=== PATIENT | female | born 2000 | race Caucasian/White ===

== ENCOUNTER 2018-11-13 12:48 | Emergency (ER) | payer MEDICAID ==
[~2018-11-13] VITALS: Ht 154.9 cm; Wt 60.0 kg
[2018-11-13 12:52] VITALS: BP 120/72
== END 2018-11-13 13:25 | disposition home or self-care (01) ==
LOC: ER 12:49
DX: S06.0X0A Concussion without loss of consciousness, initial encounter (principal); W22.8XXA Striking against or struck by other objects, initial encounter; Y93.89 Activity, other specified; Y92.89 Other specified places as the place of occurrence of the external cause; Y99.9 Unspecified external cause status
CPT/HCPCS: 99284

== ENCOUNTER 2019-10-23 10:13 | Emergency (ER) | payer MEDICAID, OTHER ==
[~2019-10-23] VITALS: Ht 152.4 cm; Wt 52.3 kg
[2019-10-23 10:55] LABS: BASOPHILS % (AUTO) 0.5 % (0-1); EOSINOPHILS % (AUTO) 0.5 % (0-6); HEMATOCRIT 41.5 % (35.0-45.0); HEMOGLOBIN 14.2 g/dl (12.0-16.0); LYMPHOCYTES # (AUTO) 1.6 X10'3 (1.1-4.8); LYMPHOCYTES % (AUTO) 28.3 % (21-51); MEAN CORPUSCULAR HEMOGLOBIN 31.9 PG (27.0-31.0); MEAN CORPUSCULAR HGB CONC 34.1 g/dL (33.0-36.5); MEAN CORPUSCULAR VOLUME 93.3 FL (78-98); MEAN PLATELET VOLUME 10.1 FL (7.4-10.4); MONOCYTES # (AUTO) 0.5 X10'3 (0-0.9); MONOCYTES % (AUTO) 9.6 % (2-12); NEUTROPHILS # (AUTO) 3.4 X10'3 (1.8-7.7); NEUTROPHILS % (AUTO) 61.1 % (42-75); PLATELET COUNT 178 X10'3 (140-440); RED BLOOD COUNT 4.45 X10'6 (4.20-5.60); RED CELL DISTRIBUTION WIDTH 13.1 % (11.5-14.5); WHITE BLOOD COUNT 5.6 X10'3 (4.5-11.0)
[2019-10-23 10:57] LABS: URINE HCG NEGATIVE (NEG)
[2019-10-23 10:58] LABS: CLARITY,URINE CLEAR (Clear); COLOR,URINE YELLOW (Yellow); GLUCOSE, URINE NEGATIVE (Neg); KETONES,URINE NEGATIVE (Neg); LEUKOCYTE ESTERASE ,URINE NEGATIVE (Neg); NITRITES, URINE NEGATIVE (Neg); OCCULT BLOOD,URINE NEGATIVE (Neg); PROTEIN,URINE NEGATIVE (Neg); UROBILINOGEN,URINE 0.2 E.U/dL (0.2-1.0)
[2019-10-23 11:04] LABS: UA COLLECTION TYPE CLN CATCH MIDSTREAM
[2019-10-23 11:07] LABS: ALANINE AMINOTRANSFERASE 24 U/L (12-78); ALBUMIN 4.1 G/DL (3.4-5.0); ALBUMIN/GLOBULIN RATIO 1.2 (1.1-1.5); ALKALINE PHOSPHATASE 75 IU/L (46-116); ANION GAP 9 (8-16); ASPARTATE AMINO TRANSFERASE 14 U/L (10-37); BILIRUBIN,TOTAL 0.5 MG/DL (0.1-1.0); BLOOD UREA NITROGEN 6 MG/DL (7-18); BUN/CREATININE RATIO 8.7 (6.6-38.0); CALCIUM 8.9 MG/DL (8.5-10.1); CHLORIDE 104 MMOL/L (99-107); CREATININE 0.69 MG/DL (0.40-0.90); GLUCOSE 88 MG/DL (70-104); LIPASE 113 U/L (73-393); SODIUM 140 MMOL/L (135-145); TOTAL CARBON DIOXIDE 27.2 MMOL/L (24-32); TOTAL PROTEIN 7.5 G/DL (6.4-8.2); eGFR > 90 ML/MIN
[2019-10-23] MEDS ORDERED: HYDROcodone/acetaminophen 5mg/325mg tablet PO ONE (11:55)
[2019-10-23] MEDS ORDERED: iohexol 350MG/ML 100ml bottle IV ONE (12:08)
[2019-10-23 13:42] VITALS: BP 102/66
== END 2019-10-23 13:44 | disposition home or self-care (01) ==
LOC: ER 10:14
DX: R10.13 Epigastric pain (principal); Z20.828 Contact with and (suspected) exposure to other viral communicable diseases
CPT/HCPCS: 36415; 74176; 80053; 81003; 81025; 83690; 85025; 87635; 99284; Q9967; 70450

== ENCOUNTER 2019-11-09 17:39 | Emergency (ER) | payer MEDICAID ==
[~2019-11-09] VITALS: Ht 152.4 cm; Wt 52.3 kg
[2019-11-09 17:48] VITALS: BP 106/65
[2019-11-09 19:12] LABS: URINE HCG NEGATIVE (NEG)
[2019-11-09 19:15] LABS: BASOPHILS % (AUTO) 0.4 % (0-1); EOSINOPHILS % (AUTO) 0.9 % (0-6); HEMATOCRIT 41.3 % (35.0-45.0); HEMOGLOBIN 14.1 g/dl (12.0-16.0); LYMPHOCYTES # (AUTO) 0.5 X10'3 (1.1-4.8); LYMPHOCYTES % (AUTO) 10.7 % (21-51); MEAN CORPUSCULAR HGB CONC 34.1 g/dL (33.0-36.5); MEAN CORPUSCULAR VOLUME 93.9 FL (78-98); MEAN PLATELET VOLUME 9.9 FL (7.4-10.4); MONOCYTES # (AUTO) 0.7 X10'3 (0-0.9); MONOCYTES % (AUTO) 15.5 % (2-12); NEUTROPHILS # (AUTO) 3.5 X10'3 (1.8-7.7); NEUTROPHILS % (AUTO) 72.5 % (42-75); PLATELET COUNT 177 X10'3 (140-440); RED CELL DISTRIBUTION WIDTH 12.9 % (11.5-14.5); WHITE BLOOD COUNT 4.8 X10'3 (4.5-11.0)
[2019-11-09 19:19] LABS: CLARITY,URINE CLEAR (Clear); COLOR,URINE YELLOW (Yellow); GLUCOSE, URINE NEGATIVE (Neg); KETONES,URINE NEGATIVE (Neg); LEUKOCYTE ESTERASE ,URINE NEGATIVE (Neg); NITRITES, URINE NEGATIVE (Neg); OCCULT BLOOD,URINE SMALL (Neg); PROTEIN,URINE NEGATIVE (Neg); UROBILINOGEN,URINE 0.2 E.U/dL (0.2-1.0)
[2019-11-09 19:21] LABS: ALANINE AMINOTRANSFERASE 21 U/L (12-78); ALBUMIN 4.1 G/DL (3.4-5.0); ALBUMIN/GLOBULIN RATIO 1.2 (1.1-1.5); ALKALINE PHOSPHATASE 92 IU/L (46-116); ANION GAP 10 (8-16); ASPARTATE AMINO TRANSFERASE 12 U/L (10-37); BILIRUBIN,TOTAL 0.3 MG/DL (0.1-1.0); BLOOD UREA NITROGEN 10 MG/DL (7-18); BUN/CREATININE RATIO 14.7 (6.6-38.0); CALCIUM 8.9 MG/DL (8.5-10.1); CHLORIDE 103 MMOL/L (99-107); CREATININE 0.68 MG/DL (0.40-0.90); GLUCOSE 99 MG/DL (70-104); LIPASE 115 U/L (73-393); POTASSIUM 3.4 MMOL/L (3.5-5.1); SODIUM 140 MMOL/L (135-145); TOTAL CARBON DIOXIDE 26.8 MMOL/L (24-32); TOTAL PROTEIN 7.6 G/DL (6.4-8.2); eGFR > 90 ML/MIN
[2019-11-09 19:22] LABS: UA COLLECTION TYPE CLN CATCH MIDSTREAM
[2019-11-09 19:35] LABS: BACTERIA,URINE NONE SEEN /HPF (Neg); MUCUS STRANDS NONE SEEN /LPF (Neg); SQUAMOUS EPITHELIAL CELL,UR FEW /LPF (FEW); WBC,URINE 0-4 /HPF (0-4)
[2019-11-09] MEDS ORDERED: acetaminophen 325mg tablet PO ONE (19:55)
[2019-11-09] MEDS ORDERED: ondansetron 4mg rapidly disintigrating tab PO ONE (19:55)
[2019-11-09 22:58] LABS: PLATELET ESTIMATE NORMAL; TOTAL CELLS COUNTED 100
== END 2019-11-09 20:22 | disposition home or self-care (01) ==
LOC: ER 17:39
DX: R10.9 Unspecified abdominal pain (principal); R11.0 Nausea; R19.7 Diarrhea, unspecified
CPT/HCPCS: 36415; 80053; 81001; 81025; 83690; 85007; 85025; 99283

== ENCOUNTER 2021-02-16 11:56 | Emergency (ER) | payer MEDICAID ==
[~2021-02-16] VITALS: Ht 152.4 cm; Wt 52.3 kg
[2021-02-16] MEDS ORDERED: ketorolac tromethamine 15mg/ml inj. IM ONE (19:40)
[2021-02-16 22:15] VITALS: BP 113/70
[2021-02-16] MEDS ORDERED: HYDR-3965 PO (23:47)
== END 2021-02-17 00:30 | disposition home or self-care (01) ==
LOC: ER 11:57
DX: S12.501A Unspecified nondisplaced fracture of sixth cervical vertebra, initial encounter for closed fracture (principal); M54.2 Cervicalgia; M54.89 Other dorsalgia; R53.1 Weakness; Z72.89 Other problems related to lifestyle; Z79.899 Other long term (current) drug therapy; V87.7XXA Person injured in collision between other specified motor vehicles (traffic), initial encounter; Y93.89 Activity, other specified; Y92.89 Other specified places as the place of occurrence of the external cause; Y99.8 Other external cause status
CPT/HCPCS: 70450; 72125; 96372; 99285; J1885

== ENCOUNTER 2021-02-23 12:24 | Emergency (ER) | payer MEDICAID ==
[~2021-02-23] VITALS: Ht 152.4 cm; Wt 52.3 kg
[~2021-02-23 12:24] MED LIST: HYDR-3965 PO
[2021-02-23 12:29] VITALS: BP 114/79
[2021-02-23] MEDS ORDERED: GABA-534 PO (12:38)
[2021-02-23] MEDS ORDERED: GABA-530 PO (12:45)
== END 2021-02-23 13:22 | disposition home or self-care (01) ==
LOC: ER 12:26
DX: S12.591D Other nondisplaced fracture of sixth cervical vertebra, subsequent encounter for fracture with routine healing (principal); Z76.0 Encounter for issue of repeat prescription; V49.88XD Car occupant (driver) (passenger) injured in other specified transport accidents, subsequent encounter
CPT/HCPCS: 99283

== ENCOUNTER 2022-09-10 10:57 | Emergency (ER) | payer MEDICAID ==
[~2022-09-10] VITALS: Ht 154.9 cm; Wt 52.6 kg
[~2022-09-10 10:57] MED LIST changes: +GABA-530 PO; -HYDR-3965 PO
[2022-09-10 11:03] VITALS: BP 126/66; PULSE 118; TEMP 100.2; O2SAT 98
[2022-09-10 11:11] VITALS: RESP 18
[2022-09-10] MEDS ORDERED: PENI500T2 PO (11:21)
[2022-09-10] MEDS ORDERED: LIDO20SO16 PO (11:21)
== END 2022-09-10 11:57 | disposition home or self-care (01) ==
LOC: ER 10:58
DX: J02.9 Acute pharyngitis, unspecified (principal); R50.9 Fever, unspecified; R59.0 Localized enlarged lymph nodes; Z72.89 Other problems related to lifestyle; Z88.0 Allergy status to penicillin; Z79.899 Other long term (current) drug therapy
CPT/HCPCS: 99283; 99285

== ENCOUNTER 2024-05-27 03:26 | Emergency (ER) | payer MEDICAID ==
[~2024-05-27] VITALS: Ht 154.9 cm; Wt 51.8 kg
[~2024-05-27 03:26] MED LIST changes: +LIDO20SO16 PO
[2024-05-27 03:28] VITALS: BP 110/65; PULSE 80; O2SAT 99
[2024-05-27 04:32] VITALS: RESP 13; TEMP 97.6
== END 2024-05-27 04:36 | disposition home or self-care (01) ==
LOC: ER 03:27
DX: T19.2XXA Foreign body in vulva and vagina, initial encounter (principal); Z79.899 Other long term (current) drug therapy; Z72.89 Other problems related to lifestyle; W44.8XXA Other foreign body entering into or through a natural orifice, initial encounter; Y93.89 Activity, other specified; Y92.89 Other specified places as the place of occurrence of the external cause; Y99.8 Other external cause status
CPT/HCPCS: 99284; A6449